=== PATIENT | male | born 1970 | race Caucasian/White ===

== ENCOUNTER 2016-08-09 21:54 | Emergency (ER) | payer OTHER ==
[~2016-08-09] VITALS: Ht 185.4 cm; Wt 72.3 kg
[2016-08-09] MEDS ORDERED: TRAMADOL HCL50 MG PO (23:25)
[2016-08-09] MEDS ORDERED: MOBIC7.5 MG PO (23:25)
[2016-08-09 23:39] VITALS: BP 105/91
== END 2016-08-09 23:41 | disposition home or self-care (01) ==
LOC: RME 21:54 → EME 21:54 → RME 23:41
DX: M76.9 Unspecified enthesopathy, lower limb, excluding foot (principal); M25.561 Pain in right knee; F17.200 Nicotine dependence, unspecified, uncomplicated
CPT/HCPCS: 99281; 99284

== ENCOUNTER 2017-02-27 23:00 | Emergency (ER) | payer SELFPAY ==
[~2017-02-27] VITALS: Ht 185.4 cm; Wt 74.7 kg
[~2017-02-27 23:00] MED LIST: MOBIC7.5 MG PO; TRAMADOL HCL50 MG PO
[2017-02-27] MEDS ORDERED: SILVADENE20 GM TP (23:30)
[2017-02-27] MEDS ORDERED: KEFLEX500 MG PO (23:30)
[2017-02-28 00:08] VITALS: BP 121/77
== END 2017-02-28 00:09 | disposition home or self-care (01) ==
LOC: EME 23:00
DX: T22.211A Burn of second degree of right forearm, initial encounter (principal); T31.0 Burns involving less than 10% of body surface; S61.202A Unspecified open wound of right middle finger without damage to nail, initial encounter; L08.9 Local infection of the skin and subcutaneous tissue, unspecified; X12.XXXA Contact with other hot fluids, initial encounter; Y99.0 Civilian activity done for income or pay
CPT/HCPCS: 99281; 99284

== ENCOUNTER 2017-05-11 16:32 | Emergency (ER) | payer SELFPAY ==
[~2017-05-11] VITALS: Ht 185.4 cm; Wt 80.5 kg
[~2017-05-11 16:32] MED LIST changes: +KEFLEX500 MG PO; +SILVADENE20 GM TP
[2017-05-11 21:16] VITALS: BP 108/70
== END 2017-05-11 21:16 | disposition home or self-care (01) ==
LOC: EME 16:32
DX: R51 Headache (principal); R42 Dizziness and giddiness; R11.0 Nausea; F17.200 Nicotine dependence, unspecified, uncomplicated
CPT/HCPCS: 80185; 99281; 99284; J1885

== ENCOUNTER 2017-09-14 22:05 | Emergency (ER) | payer SELFPAY ==
[~2017-09-14] VITALS: Ht 185.4 cm; Wt 73.6 kg
[2017-09-14 22:57] VITALS: BP 105/74
== END 2017-09-14 22:59 | disposition home or self-care (01) ==
LOC: EME 22:05
PROC: 0H97XZX Drainage of Abdomen Skin, External Approach, Diagnostic (ICD-10-PCS; principal; 2017-09-14)
DX: L72.0 Epidermal cyst (principal); L08.9 Local infection of the skin and subcutaneous tissue, unspecified; F17.200 Nicotine dependence, unspecified, uncomplicated
CPT/HCPCS: 88304; 99281; 99283